=== PATIENT | male | born 1950 | race Caucasian/White ===

== ENCOUNTER 2016-11-12 13:01 | Day surgery (SDC) | payer OTHER ==
[~2016-11-12] VITALS: Ht 172.7 cm; Wt 78.1 kg
[~2016-11-12 13:01] MED LIST: ASPI325T PO; CHRO200C PO; CO Q100C9 PO; D32000CA PO; FURO20 PO; ISOS60 PO; LANTUS2P SC; LIPI20TA PO; LISI40TA PO; METF500 PO; METO25 PO; NITR.4 SL; POTA20IN3 PO; PRAS10 PO
[2016-11-12 13:52] VITALS: BP 156/80; PULSE 66; RESP 18; TEMP 97.5; O2SAT 98
[2016-11-12] MEDS ORDERED: METOPROLOL TARTRATE 25 MG TAB PO PRN (14:00)
[2016-11-12] MEDS ORDERED: POVIDONE IODINE 5% (ANTISEPSIS KIT) 4 APPLICATIONS EACH NARE SCH (14:00)
[2016-11-12] MEDS ORDERED: LACTATED RINGER'S 1000 ML IV SCH (14:00)
[2016-11-12] MEDS ORDERED: INSULIN HUMAN REGULAR 1,000 UNITS/10 ML VIAL SQ PRN (14:00)
[2016-11-12] MEDS ORDERED: NO Heparin, Lovenox, Coumadin at least 12 hours prior to procedure. XX PRN (14:00)
[2016-11-12] MEDS ORDERED: SODIUM CHLORID 0.9% 500 ML IV SCH (14:00)
[2016-11-12] MEDS ORDERED: Hold AM Insulin & AM Hypoglycemic medications in diabetic patients XX PRN (14:00)
[2016-11-12] MEDS ORDERED: CHLORHEXIDINE GLUCONATE 2 % 1 PACK (2 CLOTHS) TOP SCH (14:00)
[2016-11-12] MEDS ORDERED: ceFAZolin 2 GM PREMIX 50 ML IV SCH (14:00)
[2016-11-12] MEDS ORDERED: NS 1000 ML IV SCH (14:00)
[2016-11-12] MEDS ORDERED: VANCOMYCIN 1000 MG/NS 250 ML IV SCH ×2 (14:00)
[2016-11-12] MEDS ORDERED: PANT40TA3 PO (14:08)
[2016-11-12] MEDS ORDERED: LANTUS2P SQ (14:08)
[2016-11-12] MEDS ORDERED: TRAD5TAB PO (14:08)
[2016-11-12] MEDS ORDERED: POTA-163 PO (14:08)
[2016-11-12] MEDS ORDERED: CLOP75TA PO (14:08)
[2016-11-12] MEDS ORDERED: VITA2000 PO ×2 (14:08)
[2016-11-12] MEDS ORDERED: CHRO200T4 PO (14:08)
[2016-11-12] MEDS ORDERED: LISI40TA PO (14:08)
[2016-11-12] MEDS ORDERED: CO Q10CA PO (14:08)
[2016-11-12] MEDS ORDERED: ISOS60TA PO (14:08)
[2016-11-12] MEDS ORDERED: VITA100036 PO (14:08)
[2016-11-12] MEDS ORDERED: FURO40TA PO (14:08)
[2016-11-12] MEDS ORDERED: ATOR20TA15 PO (14:08)
[2016-11-12] MEDS ORDERED: ASPI81TA5 PO (14:08)
[2016-11-12] MEDS ORDERED: METO25TA3 PO (14:08)
[2016-11-12 14:09] LABS: AUTOMATED NEUTROPHIL # 5.9 TH/MM3 (1.8-7.7); BASOPHIL # 0.1 TH/MM3 (0-0.2); EOSINOPHIL # 0.1 TH/MM3 (0-0.4); EOSINOPHIL % 1.3 % (0.0-4.0); HEMATOCRIT 34.3 % (39.0-51.0); HEMO FLAGS DIFF FINAL; LYMPH % 11.1 % (9.0-44.0); LYMPHOCYTE # 0.8 TH/MM3 (1.0-4.8); MEAN CELL VOLUME 83.6 FL (80.0-100.0); MEAN CORPUSCULAR HEMOGLOBIN 28.2 PG (27.0-34.0); MEAN CORPUSCULAR HGB CONC 33.7 % (32.0-36.0); MONO % 8.5 % (0.0-8.0); NEUT % 78.1 % (16.0-70.0); PLATELET COUNT 282 TH/MM3 (150-450); RED CELL DISTRIBUTION WIDTH 16.9 % (11.6-17.2); WHITE BLOOD COUNT 7.5 TH/MM3 (4.0-11.0)
[2016-11-12 14:18] LABS: APTT (PATIENT) 24.5 SEC (24.3-30.1); INTERNATIONAL NORMALIZED RATIO 1.2 RATIO; PROTHROMBIN TIME - PATIENT 13.5 SEC (9.8-11.6)
[2016-11-12 14:22] LABS: BICARBONATE 27.6 MEQ/L (21.0-32.0); POTASSIUM 4.1 MEQ/L (3.5-5.1)
[2016-11-12] MEDS ORDERED: PROPOFOL 200 MG/20 ML AMP IV ONE (14:33)
[2016-11-12] MEDS ORDERED: LIDOCAINE HCL 2% 50 ML VIAL ONE (14:37)
--- NOTE | 2016-11-12 15:36 | EKG ---
Date Performed: 11/12/2016 Time Performed: 14:06:34 PTAGE: 66 years EKG: Sinus rhythm Left bundle branch block Abnormal ECG COMPARED TO PRIOR ELECTROCARDIOGRAM, Rate has slowed. PREVIOUS TRACING : 03/15/2016 18.59 DOCTOR: Joel Boyce Interpretating Date/Time 11/12/2016 15:34:39
[2016-11-12] MEDS ORDERED: DEXTROSE 50% IN WATER 50 ML VIAL(D50) IV PUSH PRN (16:15)
[2016-11-12] MEDS ORDERED: traMADol HCL 50 MG TAB PO PRN (16:15)
[2016-11-12] MEDS ORDERED: ZOLPIDEM TARTRATE 5 MG TAB PO PRN (16:15)
[2016-11-12] MEDS ORDERED: GLUCAGON 1 MG/ML VIAL OTHER PRN (16:15)
[2016-11-12] MEDS ORDERED: MIDAZOLAM HCL 2 MG/2 ML VIAL ONE (16:18)
--- NOTE | 2016-11-12 16:37 | RADRPT ---
EXAM DATE/TIME: 11/12/2016 16:10 [place] COMPARISON: CHEST SINGLE AP, March 15, 2016, 19:53. INDICATIONS : Evaluate for pneumothorax. MEDICAL HISTORY : None. SURGICAL HISTORY : CABG. Pacemaker. ENCOUNTER: Initial ACUITY: 1 day PAIN SCORE: 0/10 LOCATION: Bilateral chest FINDINGS: Again noted is evidence of prior median sternotomy and compensated left ventricular car diomegaly. There is now placement of a unipolar pacemaker overlying left hemithorax without evidence of pneumothorax. CONCLUSION: There is placement of a unipolar pacemaker overlying left hemithorax with no evidence of pneumothorax. Marcellus Brewer MD on November 12, 2016 at 16:33 Board Certified Radiologist. This report was verified electronically.
[2016-11-12 20:00] VITALS: BP 130/59; PULSE 75; RESP 16; TEMP 98.4; O2SAT 92
[2016-11-12] MEDS: INSULIN NovoLIN REGULAR SUPPLEMENTAL SCALE SQ SCH (20:51)
[2016-11-12] MEDS: METOPROLOL TARTRATE 25 MG TAB PO SCH (20:51)
[2016-11-12] MEDS: FUROSEMIDE 40 MG TAB PO SCH (20:51)
[2016-11-12] MEDS ORDERED: ATORVASTATIN 20 MG TAB PO SCH (21:00)
[2016-11-12 22:00] VITALS: PULSE 86
[2016-11-13] VITALS (7 sets, daily range): BP systolic 156–165; BP diastolic 77–87; PULSE 67–80; RESP 16–22; TEMP 97.4–97.8; O2SAT 91–95
[2016-11-13] MEDS ORDERED: VANCOMYCIN INJ 1,000 MG in SODIUM CHLOR 0.9% 250 ML INJ 250 ML IV ONE (04:15)
[2016-11-13] MEDS: INSULIN NovoLIN REGULAR SUPPLEMENTAL SCALE SQ SCH (06:40)
[2016-11-13] MEDS ORDERED: LEVA500T PO (08:10)
--- NOTE | 2016-11-13 08:27 | PD.CARD.PN ---
Subjective Subjective Remarks Denies pain, dyspnea, dizziness, palpitations. Objective Medications Item Value Date Time Aspirin 81 mg 11/13/16 0900 (Ecotrin Ec) DAILY/PO Clopidogrel 75 mg 11/13/16 0900 Bisulfate DAILY/PO (Plavix) Isosorbide 60 mg 11/13/16 0900 Mononitrate DAILY/PO (Imdur) Lisinopril 40 mg 11/13/16 0900 (Prinivil) DAILY/PO Potassium Chloride 20 meq 11/13/1600 (KCl) DAILY/PO Atorvastatin 20 mg 11/12/162099 Calcium HS/PO 11/12/162050 (Lipitor) Furosemide 40 mg 11/12/162099 (Lasix) BID/PO 11/12/162050 Metoprolol 25 mg 11/12/162099 Tartrate BID/PO 11/12/162050 (Lopressor) Vital Signs / I&O Vital Signs Date Time Temp Pulse Resp B/P Pulse Ox O2 Delivery O2 Flow Rate FiO2 11/13/16 06:00 68 11/13/16 04:00 97.4 70 16 156/79 91 11/13/16 04:00 67 11/13/16 02:00 74 11/13/16 00:00 97.8 72 16 158/87 92 11/13/16 00:00 72 11/12/16 22:00 86 11/12/16 20:00 98.4 75 16 130/59 92 11/12/16 20:00 75 11/12/16 16:17 Room Air 11/12/16 13:52 97.5 66 18 156/80 98 I/O 11/12/16 11/12/16 11/12/16 11/13/16 11/13/16 11/13/16 07:00 15:00 23:00 07:00 15:00 23:00 Intake Total 490 ml Output Total 700 ml 450 ml Balance -700 ml 40 ml Intake Oral 240 ml IV Total 250 ml Output Urine Total 700 ml 450 ml # Bowel Movements 0 Physical Exam ICD site clean, dry, intact, no hematoma, no tenderness Laboratory Laboratory Tests Test 11/12/16 13:50 White Blood Count 7.5 TH/MM3 Red Blood Count 4.10 MIL/MM3 Hemoglobin 11.6 GM/DL Hematocrit 34.3 % Mean Corpuscular Volume 83.6 FL Mean Corpuscular Hemoglobin 28.2 PG Mean Corpuscular Hemoglobin 33.7 % Concent Red Cell Distribution Width 16.9 % Platelet Count 282 TH/MM3 Mean Platelet Volume 7.8 FL Neutrophils (%) (Auto) 78.1 % Lymphocytes (%) (Auto) 11.1 % Monocytes (%) (Auto) 8.5 % Eosinophils (%) (Auto) 1.3 % Basophils (%) (Auto) 1.0 % Neutrophils # (Auto) 5.9 TH/MM3 Lymphocytes # (Auto) 0.8 TH/MM3 Monocytes # (Auto) 0.6 TH/MM3 Eosinophils # (Auto) 0.1 TH/MM3 Basophils # (Auto) 0.1 TH/MM3 CBC Comment DIFF FINAL Differential Comment Prothrombin Time 13.5 SEC Prothromb Time International 1.2 RATIO Ratio Activated Partial 24.5 SEC Thromboplast Time Sodium Level 139 MEQ/L Potassium Level 4.1 MEQ/L Chloride Level 102 MEQ/L Carbon Dioxide Level 27.6 MEQ/L Anion Gap 9 MEQ/L Blood Urea Nitrogen 38 MG/DL Creatinine 1.99 MG/DL Estimat Glomerular Filtration 34 ML/MIN Rate Random Glucose 145 MG/DL Calcium Level 8.8 MG/DL Assessment and Plan Problem List: (1) S/P ICD (internal cardiac defibrillator) procedure Assessment and Plan: Stable overnight. ICD site fine. ICD re-interrogation shows good, stable pacing/defibrillatory parameters. To discharge today, same home medications plus Levaquin 500 mg qd for 5 days, f/u next week for incision recheck. (2) CAD (coronary artery disease) Assessment and Plan: Stable. No recent angina. Cont same medical regimen. (3) Ischemic cardiomyopathy Assessment and Plan: Stable. Compensated. Cont current medical therapy. Follow up with Dr. Hatfield as scheduled. Code Status full code Discussed Condition With patient Problem Qualifiers (1) CAD (coronary artery disease): Qualified Code: I25.10 - Coronary artery disease involving nikolski coronary artery of nikolski heart without angina pectoris Niranjan Phan MD Nov 13, 2016 08:27
[2016-11-13] MEDS: METOPROLOL TARTRATE 25 MG TAB PO SCH (08:33)
[2016-11-13] MEDS: FUROSEMIDE 40 MG TAB PO SCH (08:33)
[2016-11-13] MEDS ORDERED: CHOLECALCIFEROL (VIT D3) 1000 UNIT TAB PO SCH (09:00)
[2016-11-13] MEDS ORDERED: NON-FORMULARY DRUG (Linagliptin (Tradjenta) 5 MG) PO SCH (09:00)
[2016-11-13] MEDS ORDERED: PANTOPRAZOLE SOD 40 MG DELAYED RELEASE TAB PO SCH (09:00)
[2016-11-13] MEDS ORDERED: PT:TRADJENTA 5 MG PO SCH (09:00)
[2016-11-13] MEDS ORDERED: ISOSORBIDE MONONITRATE 60 MG TAB PO SCH (09:00)
[2016-11-13] MEDS ORDERED: ASPIRIN EC 81 MG TABEC PO SCH (09:00)
[2016-11-13] MEDS ORDERED: COENZYME Q10 10 MG PO SCH (09:00)
[2016-11-13] MEDS ORDERED: CLOPIDOGREL 75 MG TAB PO SCH (09:00)
[2016-11-13] MEDS ORDERED: CHROMIUM PICOLINATE 200 MCG PO SCH (09:00)
[2016-11-13] MEDS ORDERED: POTASSIUM CHLORIDE 20 MEQ CONTROLLED RELEASE TAB PO SCH (09:00)
[2016-11-13] MEDS ORDERED: LISINOPRIL 20 MG TAB PO SCH (09:00)
--- NOTE | 2016-11-17 13:58 | MP ---
cc: ZACH SHEA MD, GLENN H. M.D. DATE OF SURGERY: 11/12/2016 PROCEDURE Single-chamber AICD implantation via the left subclavian vein. INDICATIONS Primary prevention of sudden cardiac , history of severe ischemic cardiomyopathy. OPERATIVE NOTES The patient was brought to the operating suite in a fasting state after having signed informed consent. The left upper chest was prepped and draped as per policy and anesthetized with 1% lidocaine. Central venous access was obtained via the left subclavian vein using modified Seldinger technique. A transverse incision was made inferior to the left clavicle and using blunt dissection a subcutaneous pocket was formed down to the pectoralis fascia. Over the guidewire an 8 Palestinian sheath was placed and through this sheath a ventricular active fixation AICD lead was introduced and its tip positioned in the right ventricular apex where good current of injury, stimulation threshold (0.8 volts) and sensitivity (24.2 mV) were verified. The lead has atrial sensing capability, and the P-wave was measured at 8.2 mV. The leads were then connected to the AICD generator which is a Smart Wire [employer] Itrevia device. The leads and the generator were placed back into the subcutaneous pocket which was closed using 3-0 Vicryl interrupted stitches in two layers to close the subcutaneous tissue and 4-0 Monocryl running stitch to close the subcuticular tissue. Overlapping Steri-Strips and a pressure dressing were applied. Testing of the device was also done. Ventricular fibrillation was induced. The patient had a "dirty break" after a charge time of 5 seconds with a 20 joule shock. It was decided to test the patient again in five minutes. Ventricular fibrillation was again induced. The patient was successfully rescued with a 25 joules shock after a charge time of 5 seconds at a shock impedance of 59 ohms. There were no apparent immediate complications. A portable chest x-ray is pending at time of this dictation. CONCLUSIONS 1. Successful single-chamber (with atrial sensing capability) AICD implantation via the left subclavian vein using a [employer]ot[employer] Itrevia AICD generator. 2. Status post AICD defibrillation threshold testing. Niranjan Phan MD [facility] /4:01 PM /1:52 PM [facility]
== END 2016-11-13 09:12 | disposition home or self-care (01) ==
LOC: HDOC 13:01 → HDIC 13:01 → HCPC 18:45 → HDOC 11-13 09:12
PROVIDERS: ATTEND Internal Medicine Cardiovascular Disease
DX: I25.5 Ischemic cardiomyopathy (principal); I13.0 Hypertensive heart and chronic kidney disease with heart failure and stage 1 through stage 4 chronic kidney disease, or unspecified chronic kidney disease; I50.9 Heart failure, unspecified; N18.3 Chronic kidney disease, stage 3 (moderate); E11.22 Type 2 diabetes mellitus with diabetic chronic kidney disease; I25.798 Atherosclerosis of other coronary artery bypass graft(s) with other forms of angina pectoris; I65.29 Occlusion and stenosis of unspecified carotid artery; J44.9 Chronic obstructive pulmonary disease, unspecified; I25.2 Old myocardial infarction; I73.9 Peripheral vascular disease, unspecified; F17.210 Nicotine dependence, cigarettes, uncomplicated; Z71.6 Tobacco abuse counseling
CPT/HCPCS: 33249; 71010; 80048; 82948; 85025; 85610; 85730; 93005; 93641; C1722; C1777; J0690; J2250; J3010; J3370; J7050